=== PATIENT | female | born 1990 | race African-American/Black ===

== ENCOUNTER 2019-10-27 03:49 | Inpatient (IN) | payer MEDICAID ==
[~2019-10-27] VITALS: Ht 165.1 cm; Wt 80.7 kg
[~2019-10-27 03:49] MED LIST: NO MEDS
[2019-10-27] MEDS ORDERED: METHYLERGONOVINE MALEATE 0.2 MG/ML IM PRN (04:45)
[2019-10-27] MEDS ORDERED: NALOXONE HCL 0.4 MG/ML 1ML VIAL IM PRN (04:45)
[2019-10-27] MEDS ORDERED: BUTORPHANOL TARTRATE 2 MG/ML VIAL ONE (05:33)
[2019-10-27] MEDS ORDERED: BUTORPHANOL TARTRATE 2 MG/ML VIAL IV NR (05:35)
[2019-10-27 05:59] LABS: BASOPHILS % 0.5 % (0.0-2.0); EOSINOPHILS % 0.1 % (0.0-5.0); HEMATOCRIT. 31.6 % (36.0-48.0); HEMOGLOBIN. 10.3 g/dL (12.0-16.0); LYMPHOCYTES % 15.5 % (20.0-50.0); MEAN CORPUSCULAR HEMOGLOBIN 27.3 pg (28.0-32.0); MEAN CORPUSCULAR VOLUME 83.6 fL (81.0-99.0); MEAN PLATELET VOLUME 11.6 fl (7.4-10.4); MONOCYTES % 6.5 % (2.0-8.0); NEUTROPHILS % 77.4 % (40.0-76.0); PLATELET 155 x1000/uL (130-400); RED BLOOD CELL COUNT 3.78 mill/uL (4.2-5.4); RED CELL DISTRIBUTION WIDTH 15.5 % (11.6-14.6)
[2019-10-27] MEDS ORDERED: AMPICILLIN 2,000 MG in SODIUM CHLORIDE 0.9% 100 ML IV SCH (06:00)
[2019-10-27] MEDS ORDERED: LACTATED RINGERS 1,000 ML IV NR (06:00)
[2019-10-27] MEDS ORDERED: LACTATED RINGERS 1,000 ML IV SCH (06:00)
[2019-10-27 06:02] LABS: INR 0.9; PARTIAL THROMBOPLASTIN TIME 24.6 sec (23.4-31.0); PROTHROMBIN TIME 9.3 sec (9.6-11.0)
[2019-10-27 06:04] LABS: CLARITY URINE CLOUDY (CLEAR); COLOR URINE YELLOW (YELLOW); KETONES URINE NEGATIVE (NEGATIVE); LEUKOCYTE ESTERASE URINE 3+ (NEGATIVE); NITRITE URINE NEGATIVE (NEGATIVE); OCCULT BLOOD URINE 3+ (NEGATIVE); PH URINE 6.5 (4.5-8.0); PROTEIN URINE 2+ (NEGATIVE); SPECIFIC GRAVITY URINE 1.027 (1.005-1.030)
[2019-10-27 06:32] LABS: *AMPHETAMINES SCREEN URINE NEGATIVE (NEGATIVE)
[2019-10-27 06:33] LABS: *BARBITURATES SCREEN URINE NEGATIVE (NEGATIVE); *BENZODIAZEPINES SCREEN URINE NEGATIVE (NEGATIVE); *COCAINE SCREEN URINE NEGATIVE (NEGATIVE); METHADONE URINE SCREEN NEGATIVE (NEGATIVE); OPIATES URINE SCREEN NEGATIVE (NEGATIVE); PHENCYCLIDINE URINE SCREEN NEGATIVE (NEGATIVE)
[2019-10-27 06:34] LABS: CANNABINOID URINE SCREEN NEGATIVE (NEGATIVE)
[2019-10-27 06:46] LABS: HEPATITIS B SURFACE ANTIGEN NEGATIVE
[2019-10-27] MEDS ORDERED: FENTANYL CITRATE/PF 50MCG/ML 2ML VIAL ONE (07:01)
[2019-10-27] MEDS ORDERED: DEXT 5%/LR + PITOCIN 20UNITS/L 1,000 ML IV ONE (07:15)
[2019-10-27] MEDS ORDERED: LIDOCAINE HCL 1% 20ML VIAL (Pyxis) INJ INFIL ONE (09:00)
[2019-10-27] MEDS ORDERED: DEXT 5%/LR + PITOCIN 20UNITS/L 1,000 ML IV SCH (09:14)
[2019-10-27] MEDS ORDERED: IBUPROFEN 400MG TABLET PO PRN (09:15)
[2019-10-27] MEDS ORDERED: RHO(D) IMMUNE GLOBULIN 300 MCG/SYR IM PRN (09:15)
[2019-10-27] MEDS ORDERED: IBUPROFEN 800MG TABLET PO PRN (09:15)
[2019-10-27 11:00] VITALS: BP 134/89
[2019-10-27 11:30] VITALS: BP 137/87
[2019-10-27 20:00] VITALS: BP 120/82
[2019-10-27] MEDS: BENZOCAINE/LANOLIN/ALOE VERA SPRAY TOP PRN (20:57)
[2019-10-28 04:15] VITALS: BP 128/89
[2019-10-28 07:01] LABS: BASOPHILS % 0.5 % (0.0-2.0); HEMATOCRIT. 26.4 % (36.0-48.0); HEMOGLOBIN. 8.6 g/dL (12.0-16.0); LYMPHOCYTES % 25.3 % (20.0-50.0); MEAN CORPUSCULAR HEMOGLOBIN 27.3 pg (28.0-32.0); MEAN CORPUSCULAR VOLUME 83.4 fL (81.0-99.0); MEAN PLATELET VOLUME 10.8 fl (7.4-10.4); NEUTROPHILS % 67.2 % (40.0-76.0); PLATELET 117 x1000/uL (130-400); RED BLOOD CELL COUNT 3.17 mill/uL (4.2-5.4); RED CELL DISTRIBUTION WIDTH 15.8 % (11.6-14.6)
[2019-10-28 08:00] VITALS: BP 107/79
[2019-10-28 16:00] VITALS: BP 110/80
[2019-10-28 22:00] VITALS: BP 125/81
[2019-10-29 04:50] VITALS: BP 115/82
[2019-10-29] MEDS ORDERED: IBUP-2030 PO (06:50)
[2019-10-29] MEDS ORDERED: NORE0.3520 PO (06:50)
[2019-10-29] MEDS ORDERED: FERR325T6 MT (06:50)
[2019-10-29] MEDS ORDERED: MULT-1146 MT (06:50)
[2019-10-29 07:38] VITALS: BP 107/68
[2019-10-29] MEDS: BENZOCAINE/LANOLIN/ALOE VERA SPRAY TOP PRN (08:16)
== END 2019-10-29 10:50 | disposition home or self-care (01) | DRG 560 ==
LOC: 8 EST LDRP 03:49 → OBSVTOIN 03:49 → 8EST 10:45
PROVIDERS: ADMIT Obstetrics & Gynecology; ATTEND Obstetrics & Gynecology
PROC: 10E0XZZ Delivery of Products of Conception, External Approach (ICD-10-PCS; principal; 2019-10-27)
PROC: 0W8NXZZ Division of Female Perineum, External Approach (ICD-10-PCS; 2019-10-27)
PROC: 3E0R3BZ Introduction of Anesthetic Agent into Spinal Canal, Percutaneous Approach (ICD-10-PCS; 2019-10-28)
PROC: 00HU33Z Insertion of Infusion Device into Spinal Canal, Percutaneous Approach (ICD-10-PCS; 2019-10-28)
DX: O99.824 Streptococcus B carrier state complicating childbirth (principal); O98.82 Other maternal infectious and parasitic diseases complicating childbirth; O77.0 Labor and delivery complicated by meconium in amniotic fluid; B37.9 Candidiasis, unspecified; O99.03 Anemia complicating the puerperium; Z37.0 Single live birth; Z3A.39 39 weeks gestation of pregnancy
CPT/HCPCS: 36415; 80305; 81003; 85025; 86592; 86703; 86762; 86850; 86886; 86900; 87340; 90384; 99281; J0290; J0595; J2590; J3010; J7050

== ENCOUNTER 2024-01-21 03:50 | Emergency (ER) | payer MEDICAID, OTHER ==
[~2024-01-21] VITALS: Ht 165.1 cm; Wt 63.0 kg
[~2024-01-21 03:50] MED LIST changes: +FERR325T6 MT; +IBUP-2030 PO; +MULT-1146 MT; -NO MEDS
[2024-01-21 03:56] VITALS: BP 127/70; PULSE 84; RESP 12; TEMP 98.3; O2SAT 98
[2024-01-21] MEDS ORDERED: IBUP-2029 MT (04:24)
== END 2024-01-21 05:00 | disposition home or self-care (01) ==
LOC: ER 03:50
DX: J02.9 Acute pharyngitis, unspecified (principal)
CPT/HCPCS: 99282